=== PATIENT | male | born 1950 | race Caucasian/White ===

== ENCOUNTER 2018-11-23 15:48 | Emergency (ER) | payer OTHER ==
[~2018-11-23] VITALS: Ht 165.1 cm; Wt 77.1 kg
[2018-11-23 15:59] VITALS: BP 180/102; Ht 165.1 cm; Wt 77.1 kg
== END 2018-11-23 18:30 | disposition home or self-care (01) ==
LOC: ED 15:48
DX: S51.812A Laceration without foreign body of left forearm, initial encounter (principal); I10 Essential (primary) hypertension; E78.00 Pure hypercholesterolemia, unspecified; W26.8XXA Contact with other sharp object(s), not elsewhere classified, initial encounter; Y93.89 Activity, other specified; Y92.89 Other specified places as the place of occurrence of the external cause; Y99.8 Other external cause status
CPT/HCPCS: 90715; J2001

== ENCOUNTER 2018-11-25 15:30 | Emergency (ER) | payer OTHER ==
[~2018-11-25] VITALS: Ht 167.6 cm; Wt 77.6 kg
[2018-11-25 15:35] VITALS: Ht 167.6 cm; Wt 77.6 kg
[2018-11-25 17:31] VITALS: BP 155/72
== END 2018-11-25 17:31 | disposition home or self-care (01) ==
LOC: ED 15:30
DX: S41.112D Laceration without foreign body of left upper arm, subsequent encounter (principal); X58.XXXD Exposure to other specified factors, subsequent encounter

== ENCOUNTER 2018-12-02 19:11 | Emergency (ER) | payer OTHER ==
[~2018-12-02] VITALS: Ht 162.6 cm; Wt 74.8 kg
[2018-12-02 19:14] VITALS: Ht 162.6 cm; Wt 74.8 kg
[2018-12-02 20:38] VITALS: BP 136/82
== END 2018-12-02 20:38 | disposition home or self-care (01) ==
LOC: ED 19:11
DX: S51.812D Laceration without foreign body of left forearm, subsequent encounter (principal); E78.00 Pure hypercholesterolemia, unspecified; I10 Essential (primary) hypertension; X58.XXXD Exposure to other specified factors, subsequent encounter